=== PATIENT | female | born 1965 | race Caucasian/White ===

== ENCOUNTER 2018-03-17 13:29 | Emergency (ER) | payer BC ==
[~2018-03-17] VITALS: Ht 154.9 cm; Wt 72.6 kg
[~2018-03-17 13:29] MED LIST: ATEN25TA PO; CITA40TA5 PO; HYDR25TA9 PO; SIMV40TA3 PO
[2018-03-17 15:15] VITALS: BP 111/69
[2018-03-17] MEDS ORDERED: PENI500T PO (15:20)
--- NOTE | 2018-03-17 15:21 | PHYS DOC ---
Past Medical History Past Medical History: Hypertension Past Surgical History: Cholecystectomy Additional Past Surgical Histo: PLASTIC SURGERY ON HAND Alcohol Use: None Drug Use: None Adult General Chief Complaint Chief Complaint: DENTAL PROBLEM HPI HPI Patient is a 52 year old female who presents with the crown fell out of her right upper tooth times one month ago and now for the last week to 2 weeks she has had pain in that tooth and now right facial swelling. Patient denies any fevers. Patient rates her pain only a 4 out of 10. Patient last had Tylenol at 4 :00 this morning. Patient states she does have a dentist and will call him. Patient has no known drug allergies. Patient only medicine she takes daily is hydrochlorothiazide. Patient states she does smoke 2 cigarettes a day and does not drink or do drugs. Review of Systems Review of Systems Constitutional: Denies fever or chills [] Eyes: Denies change in visual acuity, redness, or eye pain [] HENT: Denies nasal congestion or sore throat. Right upper dental pain and facial swelling. [] Respiratory: Denies cough or shortness of breath [] Cardiovascular: No additional information not addressed in HPI [] GI: Denies abdominal pain, nausea, vomiting, bloody stools or diarrhea [] : Denies dysuria or hematuria [] Musculoskeletal: Denies back pain or joint pain [] Integument: Denies rash or skin lesions [] Neurologic: Denies headache, focal weakness or sensory changes [] Endocrine: Denies polyuria or polydipsia [] All other systems were reviewed and found to be within normal limits, except as documented in this note. Allergies Allergies Allergies Coded Allergies Type Severity Reaction Last Updated Verified No Known Drug Allergies 12/29/14 No Physical Exam Physical Exam Constitutional: Well developed, well nourished, no acute distress, non-toxic appearance. [] HENT: Normocephalic, atraumatic, bilateral external ears normal, oropharynx moist, no oral exudates, nose normal. RIght facial swelling. Right upper gum line is red and swollen.[] Eyes: PERRLA, EOMI, conjunctiva normal, no discharge. [] Neck: Normal range of motion, no tenderness, supple, no stridor. [] Cardiovascular:Heart rate regular rhythm, no murmur [] Lungs & Thorax: Bilateral breath sounds clear to auscultation [] Abdomen: Bowel sounds normal, soft, no tenderness, no masses, no pulsatile masses. [] Skin: Warm, dry, no erythema, no rash. [] Back: No tenderness, no CVA tenderness. [] Extremities: No tenderness, no cyanosis, no clubbing, ROM intact, no edema. [] Neurologic: Alert and oriented X 3, normal motor function, normal sensory function, no focal deficits noted. [] Psychologic: Affect normal, judgement normal, mood normal. [] EKG EKG [] Radiology/Procedures Radiology/Procedures [] Course & Med Decision Making Course & Med Decision Making Patient is a 52 year old female who presents with the crown fell out of her right upper tooth times one month ago and now for the last week to 2 weeks she has had pain in that tooth and now right facial swelling. Patient denies any fevers. Patient rates her pain only a 4 out of 10. Patient last had Tylenol at 4 :00 this morning. Patient states she does have a dentist and will call him. Patient has no known drug allergies. Patient only medicine she takes daily is hydrochlorothiazide. Patient states she does smoke 2 cigarettes a day and does not drink or do drugs. Patient's right upper canine is loose and is intact but crown is missing. There is no bleeding at gum line. The gumline is red and swollen. Patients right side of her upper lip and right cheek is swollen. Patient states the swelling just started this her name. Patient will be given a prescription for penicillin and some pain medication and is told she must follow -up with her primary care doctor. Patient agrees to this discharge plan. [] Dragon Disclaimer Dragon Disclaimer This electronic medical record was generated, in whole or in part, using a voice recognition dictation system. Departure Departure Impression: Primary Impression: Dental caries Disposition: HOME, SELF-CARE Condition: STABLE Referrals: NO PCP (PCP) Patient Instructions: Dental Caries Additional Instructions: Call your dentist tomorrow. Take medications as prescribed. Scripts Penicillin V Potassium (PENICILLIN V POTASSIUM) 500 Mg Tablet 1 TAB PO QID for 10 Days, #40 TAB Prov: MEHRDAD HUGGINS APRN 03/17/18 MEHRDAD HUGGINS APRN Mar 17, 2018 15:21
== END 2018-03-17 15:38 | disposition home or self-care (01) ==
LOC: ER 13:29
DX: K02.9 Dental caries, unspecified (principal); I10 Essential (primary) hypertension; F17.210 Nicotine dependence, cigarettes, uncomplicated; Z90.49 Acquired absence of other specified parts of digestive tract
CPT/HCPCS: 99283

== ENCOUNTER 2021-01-15 00:29 | Emergency (ER) | payer BC ==
[~2021-01-15] VITALS: Ht 157.5 cm; Wt 163.0 kg
[~2021-01-15 00:29] MED LIST changes: +HYDR-2145 PO; -HYDR25TA9 PO; +PENI500T PO; +SIMV40TA18 PO; -SIMV40TA3 PO
[2021-01-15 02:44] VITALS: BP 132/61
--- NOTE | 2021-01-15 03:51 | RAD ---
EXAMINATION: Right ankle radiograph. VIEWS: 3 COMPARISON: None INDICATION:55 years, Female, fall. FINDINGS: No acute fracture, dislocation or subluxation. Ankle mortise and talar dome are intact. No bone erosi on or periosteal reaction. Chronic deformity in the distal tibial shaft. Mild diffuse soft tissue swe lling about the lateral malleolus. Small ankle joint effusion. IMPRESSION: No acute osseous process. Electronically signed by: Marcus Bustillo MD (01/15/2021 3:49 AM) [facility]
--- NOTE | 2021-01-15 04:14 | PHYS DOC ---
Past Medical History Past Medical History: Hypertension Past Surgical History: Cholecystectomy Additional Past Surgical Histo: PLASTIC SURGERY ON HAND Smoking Status: Current Every Day Smoker Alcohol Use: None Drug Use: None General Adult EDM: Chief Complaint: LOWEREXTREMITY INJURY HPI: HPI: Patient is a 55 year old female who presents with right ankle pain. States that she got out of bed and rolled her ankle yesterday morning. Swelling has been over the lateral aspect of the ankle. Has been taking Tylenol, but the ankle continues to be sore and painful to walk on. No other trauma. No previous surgery on this ankle. Denies any other injuries. Did not fall or strike head. Review of Systems: Review of Systems: Constitutional: Denies fever or chills. [] Eyes: Denies change in visual acuity. [] HENT: Denies nasal congestion or sore throat. [] Respiratory: Denies cough or shortness of breath. [] Cardiovascular: Denies chest pain or edema. [] GI: Denies abdominal pain, nausea, vomiting, bloody stools or diarrhea. [] : Denies dysuria. [] Musculoskeletal: + Right ankle pain. Denies back pain. [] Integument: Denies rash. [] Neurologic: Denies headache, focal weakness or sensory changes. [] Endocrine: Denies polyuria or polydipsia. [] Lymphatic: Denies swollen glands. [] Psychiatric: Denies depression or anxiety. [] Heart Score: C/O Chest Pain: N/A Risk Factors: Risk Factors: DM, Current or recent (<one month) smoker, HTN, HLP, family history of CAD, obesity. Risk Scores: Score 0 - 3: 2.5% MACE over next 6 weeks - Discharge Home Score 4 - 6: 20.3% MACE over next 6 weeks - Admit for Clinical Observation Score 7 - 10: 72.7% MACE over next 6 weeks - Early Invasive Strategies Family History: Family History: No pertinent family history Allergies: Allergies: Allergies Coded Allergies Type Severity Reaction Last Updated Verified No Known Drug Allergies 12/29/14 No Physical Exam: PE: Constitutional: Well developed, well nourished, no acute distress, non-toxic appearance. [] HENT: Normocephalic, atraumatic, bilateral external ears normal, oropharynx moist, no oral exudates, nose normal. [] Eyes: PERRLA, EOMI, conjunctiva normal, no discharge. [] Neck: Normal range of motion, no tenderness, supple, no stridor. [] Cardiovascular:Heart rate regular rhythm, no murmur [] Lungs & Thorax: Bilateral breath sounds clear to auscultation [] Abdomen: Bowel sounds normal, soft, no tenderness, no masses, no pulsatile masses. [] Skin: Warm, dry, no erythema, no rash. [] Back: No tenderness, no CVA tenderness. [] Extremities: Right lower extremity with some swelling over the lateral malleolus. Tenderness over the lateral malleolus as well. Distal pulses intact. Range of motion limited by pain at the ankle. No evidence of midfoot instability or discomfort. No proximal fibular or tibia tenderness. [] Neurologic: Alert and oriented X 3, normal motor function, normal sensory function, no focal deficits noted. [] Psychologic: Affect normal, judgement normal, mood normal. [] EKG: EKG: [] Radiology/Procedures: Radiology/Procedures: [facility] [address] [place] [address] IMAGING REPORT Signed PATIENT: EDNA ROCHE ACCOUNT: [id number] : 1965 LOCATION: ER AGE: 55 SEX: F EXAM STATUS: PRE ER ORD. PHYSICIAN: PUNEET SAWYER MD REASON: FALL PROCEDURE: ANKLE RIGHT 3V EXAMINATION: Right ankle radiograph. VIEWS: 3 COMPARISON: None INDICATION:55 years, Female, fall. FINDINGS: No acute fracture, dislocation or subluxation. Ankle mortise and talar dome are intact. No bone erosion or periosteal reaction. Chronic deformity in the distal tibial shaft. Mild diffuse soft tissue swelling about the lateral malleolus. Small ankle joint effusion. IMPRESSION: No acute osseous process. Electronically signed by: Anil Bustillo MD (01/15/2021 3:49 AM) [facility] DICTATED and SIGNED BY: ANIL BUSTILLO MD DATE: 01/15/21 [id number] [] Course & Med Decision Making: Course & Med Decision Making Pertinent Labs and Imaging studies reviewed. (See chart for details) Patient is a 55-year-old female with right ankle pain and swelling after rolling it getting out of bed yesterday. Has had difficulty ambulating and has lateral malleoli tenderness to palpation. Ankle x-ray was obtained and does not show any acute osseous process. Likely a sprain. We will asked that she treat with Tylenol and ibuprofen and use crutches as needed. Dragon Disclaimer: Dragon Disclaimer: This electronic medical record was generated, in whole or in part, using a voice recognition dictation system. Departure Departure Disposition: HOME / SELF CARE / HOMELESS Condition: STABLE Referrals: NO PCP (PCP) Additional Instructions: Your x-ray did not show any signs of a fracture. You likely sprained your ankle. You can wrap your ankle with an Lamont bandage this may help with swelling and pain. You can use a crutch as needed until your symptoms improve. For pain tylenol and ibuprofen are best used on a schedule. Please alternate between the two. -Tylenol 1000 mg every 6 hours (do not exceed 4000 mg in one day) -Ibuprofen 400 mg every 6 hours. Take with food. Do not take for more than 1 week. PUNEET SAWYER MD Jan 15, 2021 04:14
[2021-01-15] MEDS ORDERED: IBUPROFEN 200 MG TABLET. PO ONE (05:00)
== END 2021-01-15 05:03 | disposition home or self-care (01) ==
LOC: ER 00:29
DX: M25.571 Pain in right ankle and joints of right foot (principal); I10 Essential (primary) hypertension; F17.200 Nicotine dependence, unspecified, uncomplicated; G89.11 Acute pain due to trauma; W18.39XA Other fall on same level, initial encounter; Y93.89 Activity, other specified; Y92.89 Other specified places as the place of occurrence of the external cause; Y99.8 Other external cause status
CPT/HCPCS: 29515; 73610; 99283